=== PATIENT | female | born 1955 | race Caucasian/White ===

== ENCOUNTER 2016-08-10 04:40 | Inpatient (IN) | payer OTHER ==
[~2016-08-10 04:40] MED LIST: ADVAIR; ADVAIR 10028 BLISTER INH; ADVAIR 2501 DISK W/D IH; ADVAIR 25028 BLISTER INH; ADVAIR HFA 115-28 GM IH; ALBUTEROL INH 0.3 ML AERO NEB; ALBUTEROL SULF8.5 GM IH; ANTIVERT25 MG PO; ASPIR 8181 MG PO; ASPIR-LOW81 MG PO; ASPIR-TRIN325 M1 PO; ASPIRIN EC LOW81 MG PO; ASPIRIN EC81 MG PO; ASPIRIN325 M3 PO; ASPIRIN81 MG PO; ATIVAN0.5 M1 PO; AUGMENTIN 875-1 EAC2 PO; AUGMENTIN 875-11 TAB PO; BAYER81 MG PO; BYSTOLIC10 M1 PO; BYSTOLIC10 MG PO; BYSTOLIC5 MG PO; CALCIUM 600 MG1 EACH PO; CALTRATE PO; CARAFATE1 G PO; CARAFATE1 GM/10 ML PO; COLACE100 MG PO; CRESTOR40 MG PO; DULCOLAX10 MG/SUPP RC; ENTERIC COATED325 M PO; GEMFIBROZIL600 M2 PO; GEMFIBROZIL600 MG PO; GLUCAGEN1 MG/1 ML IM; GLUCAGON EME1 MG/KIT IJ; GUAIFENESIN SYRU5 ML PO; HUMALOG100 U/ML SQ; IMODIUM2 MG PO; INCRUSE ELLI62.5 MCG INH; KEFLEX500 M4 PO; LANTUS100 U/ML SC; LANTUS100 UNITS/ SC; LEVAQUIN500 M1 PO; LEVAQUIN750 MG PO; LISINOPRIL20 MG PO; LISINOPRIL40 MG PO; LOPID600 M1 PO; LOPID600 MG PO; LOTRISONE15 GM TOP; LOW DOSE ASPIRI81 MG PO; LOW-DOSE ASPIRI81 MG PO; MACROBID 100 M100 M1 PO; MECLIZINE HCL25 MG PO; MILK OF MA400 MG/5 M PO; MIRALAX17 GM PO; MOBIC15 M2 PO; MOBIC7.5 M2 PO; MUCINEX DM ER1 EACH PO; MUCINEX600 M1 PO; MUCINEX600 MG PO; NEXIUM40 M1 PO; NEXIUM40 MG PO; NORTRIPTYLINE H10 MG PO; NORVASC10 M1 PO; NORVASC2.5 M1 PO; NORVASC5 M1 PO; NOVOLOG FL100 UNIT/2 SC; NOVOLOG FL100 UNIT/2 SQ; NOVOLOG100 U/M SQ; NOVOLOG100 UNIT/1 SQ; NOVOLOG100 UNITS/ SC; NUCYNTA50 MG PO; ONE DAILY MULTI1 TAB PO; OXYCONTIN10 M1 PO; PAMELOR10 MG PO; PHENERGAN25 M1 PO; PHENERGAN25 MG/TAB PO; PREDNISONE10 MG PO; PREDNISONE20 M1 PO; PREDNISONE20 MG PO; PRINIVIL10 M1 PO; PROVENTIL17 GM IH; ROXICODONE5 M2 PO; SENOKOT-S TABL1 EACH PO; SYMLINPEN 1202.7 ML SQ; TOUJEO SOL300 UNIT/1 SC; TRAMADOL; TRESIBA FL100 UNIT/1 SC; TUMS200 MG PO; TYLENOL325 M1 PO; TYLENOL325 M2 PO; TYLENOL650 MG PO; ULTRAM50 M1 PO; ULTRAM50 MG PO; VENTOLIN HFA18 G2 IH; VIBRAMYCIN100 MG PO; VITAMIN B-1000 MCG/ IJ; VITAMIN B12; VITAMIN B12100 MCG PO; VITAMIN D PO; XOPENEX1.25 MG/2 INH; ZOFRAN ODT4 MG/UDTAB PO; ZOFRAN4 M1 PO; ZOFRAN4 M2 PO; ZOFRAN4 MG PO; ZOLOFT25 MG PO; [UNRECOGNIZED DRUG - OTHER] PO; [UNRECOGNIZED DRUG - OTHER] SQ; [UNRECOGNIZED DRUG - REMARK]; [UNRECOGNIZED DRUG - REMARK]
[2016-08-10] MEDS ORDERED: ULTRAM50 M1 PO ×2 (06:26→06:27)
[2016-08-11 05:39] LABS: BASO % 0.2 % (0-2); EOS % 1.2 % (0-7); EOSINOPHIL ABSOLUTE COUNT 0.1 tho/cmm (0.0-0.7); HGB-HEMOGLOBIN 10.1 gm/dl (12.0-15.5); IMMATURE GRANULOCYTES ABSOLUTE 0.02 tho/cmm (0-0.03); IMMATURE GRANULOCYTES PERCENT 0.2 % (0-0.3); LYMPH % 17.4 % (20-45); MCH (MEAN CORPUSCULAR HGB) 27.2 pg (28.0-32.0); MCHC MEAN CORPUSCULAR HGB CONC 32.6 % (32.0-36.0); MCV (MEAN CELL VOLUME) 83.3 fl (82.0-96.0); MEAN PLATELET VOLUME 12.8 cmc (9.4-12.4); MONO % 6.2 % (0-12); MONOCYTE ABSOLUTE COUNT 0.7 tho/cmm (0.0-1.2); NEUTROPHIL ABSOLUTE COUNT 8.5 tho/cmm (1.6-8.0); NEUTROPHIL-AUTOMATED 8.5 tho/cmm (1.6-8.0); NEUTROPHILS % 74.8 % (40-80); PLATELET COUNT 212 tho/cmm (150-450); RED BLOOD COUNT 3.72 mil/cmm (4.00-5.20); RED CELL DISTRIBUTION WIDTH 14.6 % (12.4-16.4); WHITE BLOOD COUNT 11.3 tho/cmm (4.0-10.0)
[2016-08-11] MEDS ORDERED: MOBIC7.5 M2 PO (10:02)
[2016-08-11] MEDS ORDERED: ASPIRIN81 M1 PO (10:02)
[2016-08-11] MEDS ORDERED: NUCYNTA50 M1 PO (10:04)
[2016-08-11] MEDS ORDERED: NOVOLOG100 UNITS/ SC (10:10)
[2016-11-20] MEDS ORDERED: NORVASC2.5 M1 PO (16:23)
[2016-12-30] MEDS ORDERED: ZITHROMAX250 M1 PO (18:49)
[2016-12-30] MEDS ORDERED: ULTRAM50 M1 PO (20:14)
[2017-01-07] MEDS ORDERED: ULTRAM50 M1 PO (17:51)
[2017-01-14] MEDS ORDERED: ULTRAM50 M1 PO (14:38)
== END 2016-08-11 15:00 | DRG 470 ==
LOC: SHSC 04:40 → ORE 07:14 → PACU 09:15 → 5EA 10:30
PROVIDERS: Family Medicine; ADMIT Orthopaedic Surgery Foot and Ankle Surgery
PROC: 0SRD0J9 Replacement of Left Knee Joint with Synthetic Substitute, Cemented, Open Approach (ICD-10-PCS; principal; 2016-08-10)
PROC: 3E0F7GC Introduction of Other Therapeutic Substance into Respiratory Tract, Via Natural or Artificial Opening (ICD-10-PCS; principal; 2016-08-10)
DX: M17.12 Unilateral primary osteoarthritis, left knee (principal); E10.40 Type 1 diabetes mellitus with diabetic neuropathy, unspecified; D62 Acute posthemorrhagic anemia; E10.65 Type 1 diabetes mellitus with hyperglycemia; I10 Essential (primary) hypertension
CPT/HCPCS: C1713; C1776; J0171; J0690; J1815; J1885; J2795; J3010

== ENCOUNTER 2016-09-16 23:41 | Emergency (ER) | payer OTHER ==
[~2016-09-16 23:41] MED LIST changes: +ASPIRIN81 M1 PO; +NUCYNTA50 M1 PO
[2016-09-17] MEDS ORDERED: TRAMADOL HCL50 M2 PO (01:19)
[2016-11-20] MEDS ORDERED: NORVASC2.5 M1 PO (16:23)
[2016-12-30] MEDS ORDERED: ZITHROMAX250 M1 PO (18:49)
[2016-12-30] MEDS ORDERED: ULTRAM50 M1 PO (20:14)
[2017-01-07] MEDS ORDERED: ULTRAM50 M1 PO (17:51)
[2017-01-14] MEDS ORDERED: ULTRAM50 M1 PO (14:38)
== END 2016-09-17 01:48 ==
LOC: EDMED 23:41
DX: S29.011A Strain of muscle and tendon of front wall of thorax, initial encounter (principal); I10 Essential (primary) hypertension; E11.9 Type 2 diabetes mellitus without complications; Z79.4 Long term (current) use of insulin; Z79.82 Long term (current) use of aspirin; Z79.899 Other long term (current) drug therapy; X50.1XXA Overexertion from prolonged static or awkward postures, initial encounter
CPT/HCPCS: J1885